=== PATIENT | female | born 1955 | race Caucasian/White ===

== ENCOUNTER → 2017-05-15 10:10 | Outpatient (CLI) | payer OTHER, SELFPAY ==
[2017-05-15 11:51] LABS: ALB/GLOB Ratio 0.9 RATIO (0.9-2.4); AST(SGOT) 30 U/L (15-37); Alanine Aminotransfer ALT/SGPT 44 U/L (13-56); Albumin, Serum 3.5 g/dL (3.2-5.0); Alkaline Phosphatase 77 U/L (45-117); Anion Gap 6 (5-15); BUN 12 mg/dL (7-18); BUN/Creat Ratio 14.5 RATIO (10-20); Calcium,Total 8.6 mg/dL (8.5-10.1); Chloride 108 mmol/L (98-107); Cholesterol 186 mg/dL (200); Creatinine, Serum 0.82 mg/dL (0.55-1.02); EST Glomerular Filtration Rate 74 mL/min (>60); Est Glom Filt Rate - Afr Amer 90 mL/min (>60); Globulin 3.7 g/dL (2.2-4.2); Glucose 98 mg/dL (74-106); High Density Lipoprotein 40 mg/dL; Potassium 3.6 mmol/L (3.5-5.1); Protein, Total 7.2 g/dL (6.4-8.2); Sodium Level 142 mmol/L (136-145); Triglycerides 172 mg/dL; Very Low Density Lipoprotein 34 mg/dL (5-40)
== END ==
PROVIDERS: Family Provider Family Medicine; PCP Family Medicine; Visit Provider Family Medicine
DX: E78.5 Hyperlipidemia, unspecified (principal); E66.9 Obesity, unspecified; Z68.30 Body mass index [BMI] 30.0-30.9, adult; Z12.11 Encounter for screening for malignant neoplasm of colon
CPT/HCPCS: 36415; 80053; 80061

== ENCOUNTER → 2017-11-14 09:05 | Outpatient (CLI) | payer OTHER, SELFPAY ==
[2017-11-14 11:01] LABS: ALB/GLOB Ratio 0.9 RATIO (0.9-2.4); AST(SGOT) 30 U/L (15-37); Alanine Aminotransfer ALT/SGPT 45 U/L (13-56); Albumin, Serum 3.6 g/dL (3.2-5.0); Alkaline Phosphatase 79 U/L (45-117); Anion Gap 5 (5-15); BUN 18 mg/dL (7-18); BUN/Creat Ratio 20.5 RATIO (10-20); Calcium,Total 8.9 mg/dL (8.5-10.1); Chloride 107 mmol/L (98-107); Cholesterol 243 mg/dL (200); Creatinine, Serum 0.88 mg/dL (0.55-1.02); EST Glomerular Filtration Rate 69 mL/min (>60); Est Glom Filt Rate - Afr Amer 83 mL/min (>60); Globulin 3.9 g/dL (2.2-4.2); Glucose 102 mg/dL (74-106); High Density Lipoprotein 40 mg/dL; Potassium 4.2 mmol/L (3.5-5.1); Protein, Total 7.5 g/dL (6.4-8.2); Sodium Level 141 mmol/L (136-145); Triglycerides 247 mg/dL; Very Low Density Lipoprotein 49 mg/dL (5-40)
== END ==
PROVIDERS: Family Provider Family Medicine; PCP Family Medicine; Visit Provider Family Medicine
DX: E78.5 Hyperlipidemia, unspecified (principal); I10 Essential (primary) hypertension
CPT/HCPCS: 36415; 80053; 80061

== ENCOUNTER → 2018-02-07 11:27 | Outpatient (CLI) | payer OTHER, SELFPAY ==
[2018-02-07 15:30] LABS: Chlamydia Trachomatis by PCR Negative (Negative); Neisserai gonorrhoeae by PCR Negative (Negative); Probe Check PASS; Sample Adequacy Control PASS; Specimen Processing Control PASS
== END ==
PROVIDERS: Visit Provider Obstetrics & Gynecology
DX: Z11.3 Encounter for screening for infections with a predominantly sexual mode of transmission (principal)
CPT/HCPCS: 87491; 87591

== ENCOUNTER → 2018-06-11 09:33 | Outpatient (CLI) | payer MEDICARE, OTHER, SELFPAY ==
--- NOTE | 2018-06-11 09:40 | BI_ITS ---
MAMMOGRAPHY - BILATERAL SCREENING REASON FOR EXAM: Female, 63 years old. Routine annual screening examination. PERTINENT HISTORY: NO FAM HX CURRENT ESTROGEN X 2 MONTHS LT EXC BX 2004 TECHNIQUE: Digital bilateral breast leisa (3D mammographic acquisition) in the CC and MLO projections. 2-D mediolateral oblique (MLO) and craniocaudad (CC) views of both breasts were obtained. CAD: Full Field Digital Mammography with Computer Added Detection was performed. COMPARISON: 02/29/2016 and 07/24/2013. FINDINGS: Breast Composition: The breasts are almost entirely fatty. There are no dominant masses or suspicious calcifications. No other significant abnormalities are identified. BI/SCREENING MAMM (CAD), BILAT IMPRESSION: Stable bilateral screening mammogram. Yearly follow-up mammogram recommended. (A) ASSESSMENT CATEGORY: BIRADS Category 1: Negative. A letter regarding these results will be sent to the patient by the facility within 30 days. Approximately 10% of breast cancers are not detected by mammography. A normal mammogram should not delay biopsy of a clinically suspicious abnormality. [id number] Electronically Signed: Arthur Alfred, at 17:09 EDT Tel , Service support ,
== END ==
PROVIDERS: Family Provider Family Medicine; PCP Family Medicine; Visit Provider Obstetrics & Gynecology
DX: Z12.31 Encounter for screening mammogram for malignant neoplasm of breast (principal)
CPT/HCPCS: 77063; 77067

== ENCOUNTER 2022-02-08 15:07 | Emergency (ER) | payer MEDICARE, OTHER, SELFPAY ==
[2022-02-08 15:08] VITALS: BP 202/108; PULSE 133; RESP 16; TEMP 36.5; O2SAT 97; BMI 33.3
--- NOTE | 2022-02-08 16:05 | CT_ITS ---
STUDY: CT BRAIN WITHOUT CONTRAST REASON FOR EXAM: Female, 66 years old. Pain. Generalized numbness and pain behind the right eye for 4 days. RADIATION DOSAGE (If Supplied By Facility): CTDIvol = ( 44.99 ) mGy, DLP = ( 779.24 ) mGycm TECHNIQUE: Transaxial CT imaging of the brain was performed without administration of intravenous contrast material. Individualized dose optimization techniques were used for this CT. COMPARISON: No relevant priors. FINDINGS: Normal soft tissue structures. Normal calvarium. Normal-appearing orbits and orbital contents Normal size ventricles and extra-axial spaces for the patient''s age. Normal white matter tracts of the cerebral hemispheres. There are small punctate calcifications of the basal ganglia which are seen in the aging brain as a normal variant. Normal brainstem. Normal cerebellum. There is no intracranial hemorrhage. There are no findings of an acute ischemic infarction. Normal visualized paranasal sinuses. CT/Brain/Head without Contrast IMPRESSION: No evidence of acute intracranial or calvarial abnormality. If there is continued concern, MRI is recommended. Electronically Signed: Ariel Rausch DO at 16:59 EST Reading Location ID and State: [address] [place] [address] Tel [phone], Service support ,
--- NOTE | 2022-02-08 16:06 | EX.ED.DYSGE1 ---
HPI History of Present Illness Chief Complaint: Numb/Ting Narrative Narrative: 66-year-old female past medical history of hypertension presents with headache, numbness of her right arm and leg that she has had since Monday, 4 days ago. She actually states that she is had numbness and tingling for months. She has history of hypertension but did not take her blood pressure medications this morning. She states that she took her blood pressure yesterday and it was 137 systolic. She will complains of a headache mainly behind her right eye but somewhat behind her left eye 2. She has cervical problems and states that she is gotten used to the numbness of her right arm. Additionally, she has low back pain and sometimes she has bilateral numbness of her ankles. She states she felt pain in her leg the other day and weakness where she had to use a cane to help her walk. That has resolved. She mainly complains of a headache along with his chronic numbness and tingling. She denies any nausea or vomiting. No fevers or chills. No chest pain or shortness of breath. PFSH PFS Home Medications amlodipine 5 mg tablet 5 mg PO DAILY 02/08/22 [History Last Taken Unknown] aspirin 81 mg chewable tablet 81 mg PO DAILY 02/08/22 [History Last Taken Unknown] clobetasol 0.05 % topical cream 1 applic topical DAILY 02/08/22 [History Last Taken Unknown] estradiol 0.5 mg tablet 0.5 mg PO DAILY 02/08/22 [History Last Taken Unknown] metoprolol succinate 50 mg tablet,extended release 24 hr 50 mg PO DAILY 02/08/22 [History Last Taken Unknown] zolpidem 5 mg tablet 5 mg PO QHS PRN Sleep 02/08/22 [History Last Taken Unknown] Allergy/AdvReac Type Severity Reaction Status Date / Time codeine Allergy NEEDS Verified 02/08/22 15:08 FOLLOW-UP Social History Smoking Status: Never smoker ROS ROS ED ROS Narrative Constitutional: No fever, no chills. HEENT: No sore throat. No neck pain. No loss of vision. No rhinorrhea. Cardiovascular: No chest pain. No palpitations. No pedal edema. Respiratory: No cough, no shortness of breath. Abdominal: No abdominal pain. No nausea. No vomiting. Genitourinary: No dysuria. No hematuria. Musculoskeletal: No myalgias. No arthralgias. Neurologic: Positive posterior ocular right greater than left headaches. No dizziness. Intermittent lightheadedness. Paresthesias of right upper extremity and bilateral lower extremities. Skin: No rash. No change in color. Psychiatric: No depression. No anxiety. EXAM Physical Exam Const Vital Signs: 02/08/22 15:08 02/08/22 16:30 Temperature 97.7 F L Temperature Source Temporal Pulse Rate 133 H Respiratory Rate 16 Blood Pressure 202/108 H 164/95 H Blood Pressure Mean 139 118 Pulse Ox 97 Oxygen Delivery Method Room Air MDM MDM MDM Narrative Medical decision making narrative: Her pressure is elevated at 202/108. She had forgotten to take her medications. She will be given hydralazine. I will obtain CT imaging of her brain. We will also check basic lab work in the form of CBC and CMP. Her CBC shows normal white count of 6.9, hemoglobin 15.2, hematocrit 46.8. CMP is more remarkable for glucose of 109 with a normal anion gap of 6, LFTs are normal. CT of the brain shows no acute process. At this point in time, I do feel she can be discharged safely home with follow-up. Return instructions to the emergency department were reviewed. She will take her antihypertensives as she should. She does feel that the numbness may be coming from her neck as she has had neck pain that is chronic and previous surgery. Disposition is discharged home in stable condition. Lab Data Attestation: I reviewed the patient's lab results. Labs: Laboratory Results - last 24 hr 02/08/22 02/08/22 16:22 16:22 WBC 6.9 RBC 5.35 Hgb 15.2 H Hct 46.8 MCV 87.5 MCH 28.4 MCHC 32.5 RDW Std Deviation 38.8 RDW Coeff of Partha 12.2 Plt Count 313 MPV 9.7 Immature Gran % (Auto) 0.100 Neut % (Auto) 60.1 Lymph % (Auto) 27.0 [place] % (Auto) 8.3 Eos % (Auto) 4.1 Baso % (Auto) 0.4 Absolute Neuts (auto) 4.1 Absolute Lymphs (auto) 1.86 Nucleated RBC % 0 Sodium 141 Potassium 3.7 Chloride 106 Carbon Dioxide 29.0 Anion Gap 6 BUN 15 Creatinine 0.90 Estim Creat Clear Calc 51.66 Est GFR (MDRD) Af Amer 80 Est GFR (MDRD) Non-Af 66 BUN/Creatinine Ratio 16.7 Glucose 109 H Calcium 9.4 Total Bilirubin 1.30 H AST 29 ALT 42 Alkaline Phosphatase 92 Total Protein 7.7 Albumin 3.9 Globulin 3.8 Albumin/Globulin Ratio 1.0 Radiography Diagnostic Testing: Clinical Impression(s) from Imaging Studies Brain CT 02/08/22 16:05 IMPRESSION: No evidence of acute intracranial or calvarial abnormality. If there is continued concern, MRI is recommended. Electronically Signed: Ariel Rausch DO at 16:59 EST Reading Location ID and State: [address] [place] [address] Tel [phone], Service support , Discharge Plan Triage Chief Complaint: Numb/Ting ED Provider: Jairo Jade Dx/Rx/DC Orders Clinical Impression: Headache, Hypertension, Cervical pain (neck), Numbness Instructions: ED Hypertension, Established, ED Neck Pain, ED Pain, Acute, Uncertain Cause Prescriptions: No Action metoprolol succinate 50 mg tablet extended release 24 hr 50 mg PO DAILY clobetasol 0.05 % Cream 1 applic TOPICAL DAILY amlodipine 5 mg tablet 5 mg PO DAILY aspirin [Baby Aspirin] 81 mg Tablet,Chewable 81 mg PO DAILY zolpidem 5 mg Tablet 5 mg PO QHS PRN (Reason: Sleep) estradiol 0.5 mg Tablet 0.5 mg PO DAILY Rx Instructions: off 5 days; repeat cycle Primary Care Provider: Shanta Rivero Referrals: Herb King MD [Non-Staff] - 1-2 Days if not improving Disposition Disposition: Home, Self Care
[2022-02-08 16:30] VITALS: BP 164/95
[2022-02-08] MEDS: hydrALAZINE 20 MG/ML Vial 10 MG IV (16:36)
[2022-02-08 16:48] LABS: AST(SGOT) 29 U/L (15-37); Alanine Aminotransfer ALT/SGPT 42 U/L (13-56); Albumin, Serum 3.9 g/dL (3.2-5.0); Alkaline Phosphatase 92 U/L (45-117); Anion Gap 6 (5-15); BUN 15 mg/dL (7-18); BUN/Creat Ratio 16.7 RATIO (10-20); Calcium,Total 9.4 mg/dL (8.5-10.1); Chloride 106 mmol/L (98-107); EST Glomerular Filtration Rate 66 mL/min (>60); Est Glom Filt Rate - Afr Amer 80 mL/min (>60); Estimated Creatinine Clearance 51.66 ml/min; Globulin 3.8 g/dL (2.2-4.2); Glucose 109 mg/dL (74-106); Potassium 3.7 mmol/L (3.5-5.1); Protein, Total 7.7 g/dL (6.4-8.2); Sodium Level 141 mmol/L (136-145)
[2022-02-08 16:51] LABS: Absolute Lymphocyte Count 1.86 X10^3/uL (0.83-4.51); Absolute Neutrophil Count 4.1 X10^3/uL (2.0-7.7); Basophil# 0.03 X10^3/uL; Basophil% 0.4 % (0-1); Eosinophil# 0.28 X10^3/uL; Eosinophils% 4.1 % (0-5); Hematocrit 46.8 % (37-47); Hemoglobin 15.2 g/dL (12.0-15.0); Lymphocyte # 1.86 X10^3/ul (0.83-4.51); Mean Corp Hgb Conc 32.5 g/dL (32-36); Mean Corpuscular Hgb 28.4 pg (27.0-32.0); Mean Corpuscular Volume 87.5 fL (81-99); Mean Platelet Vol. 9.7 fl (6.2-12.0); Monocyte# 0.57 X10^3/uL; Monocyte% 8.3 % (0-10); NRBC Flagged by Analyzer 0 % (0-5); Neutrophil # 4.14 X10^3/uL (2.7-7.7); Neutrophil % 60.1 % (47-70); Platelet Count 313 K/mm3 (150-450); RBC Distribution Width CV 12.2 % (11.6-14.6); RBC Distribution Width SD 38.8 fl (35.1-43.9); Red Blood Count 5.35 M/mm3 (4.2-5.4); White Blood Count 6.9 K/mm3 (4.4-11.0)
[2022-02-08 18:02] VITALS: BP 136/85; PULSE 92
== END 2022-02-08 18:02 | disposition home or self-care (01) ==
PROVIDERS: Emergency Provider Emergency Medicine; Visit Provider Emergency Medicine
DX: R51.9 Headache, unspecified (principal); M54.2 Cervicalgia; I10 Essential (primary) hypertension; R20.0 Anesthesia of skin; Z79.899 Other long term (current) drug therapy; Z79.82 Long term (current) use of aspirin
CPT/HCPCS: 70450; 80053; 85025; 96374; 99282; A4216